=== PATIENT | male | born 1990 | race Caucasian/White ===

== ENCOUNTER 2018-08-10 20:41 | Emergency (ER) | payer SELFPAY ==
[~2018-08-10] VITALS: Ht 175.3 cm; Wt 65.9 kg
[2018-08-10 20:46] VITALS: Ht 175.3 cm; Wt 65.9 kg
[2018-08-10] MEDS ORDERED: TORADOL10 MG PO (21:38)
[2018-08-10 22:16] VITALS: BP 99/66
== END 2018-08-10 22:17 | disposition home or self-care (01) ==
LOC: D.ER 20:41
DX: S93.401A Sprain of unspecified ligament of right ankle, initial encounter (principal); X50.1XXA Overexertion from prolonged static or awkward postures, initial encounter; Y93.89 Activity, other specified; Y92.89 Other specified places as the place of occurrence of the external cause

== ENCOUNTER 2019-03-22 14:49 | Emergency (ER) | payer SELFPAY ==
[~2019-03-22] VITALS: Ht 175.3 cm; Wt 72.7 kg
[~2019-03-22 14:49] MED LIST: TORADOL10 MG PO
[2019-03-22 14:58] VITALS: Ht 175.3 cm; Wt 72.7 kg
[2019-03-22] MEDS ORDERED: ACETAMINOPHEN500 M1 PO (16:10)
[2019-03-22] MEDS ORDERED: CYCLOBENZAPRINE10 MG PO (16:10)
[2019-03-22] MEDS ORDERED: IBUPROFEN800 MG PO (16:10)
[2019-03-22 16:22] VITALS: BP 138/68
== END 2019-03-22 16:24 | disposition home or self-care (01) ==
LOC: D.ER 14:49
DX: M43.6 Torticollis (principal); M54.2 Cervicalgia; M79.18 Myalgia, other site; F17.200 Nicotine dependence, unspecified, uncomplicated